=== PATIENT | female | born 1970 ===

== ENCOUNTER 2021-02-02 15:03 | Outpatient (CLI) | payer OTHER ==
[~2021-02-02 15:03] MED LIST: PRENATAL1 TAB PO
== END 2021-02-02 15:15 | disposition home or self-care (01) ==
LOC: MAMO-SONO 15:03
PROVIDERS: ATTEND Obstetrics & Gynecology
DX: Z12.31 Encounter for screening mammogram for malignant neoplasm of breast (principal); N60.11 Diffuse cystic mastopathy of right breast; N60.12 Diffuse cystic mastopathy of left breast

== ENCOUNTER 2021-04-02 13:31 | Outpatient (CLI) | payer OTHER | END 2021-04-02 13:56 | disposition home or self-care (01) | LOC: SONOGRAMA 13:31 | PROVIDERS: ATTEND Surgery | DX: D24.2 Benign neoplasm of left breast (principal); N60.11 Diffuse cystic mastopathy of right breast; N60.12 Diffuse cystic mastopathy of left breast; N60.81 Other benign mammary dysplasias of right breast ==

== ENCOUNTER 2021-07-19 11:00 | Outpatient (CLI) | payer OTHER | END 2021-07-19 11:46 | disposition home or self-care (01) | LOC: SONOGRAMA 11:00 | PROVIDERS: ATTEND Surgery | DX: N60.11 Diffuse cystic mastopathy of right breast (principal); N60.12 Diffuse cystic mastopathy of left breast ==